=== PATIENT | male | born 1975 | race Caucasian/White ===

== ENCOUNTER 2018-07-14 10:31 | Emergency (ER) | payer SELFPAY ==
[2018-07-14 10:39] VITALS: BP 148/96; PULSE 94; TEMP 97.8; BMI 31.1
[2018-07-14] MEDS ORDERED: KETOROLAC TROMETHAMINE 60 MG/2 ML VIAL IM ONE (11:06)
[2018-07-14] MEDS ORDERED: KETOROLAC TROMETHAMINE 60 MG/2 ML VIAL ONE (11:07)
--- NOTE | 2018-07-14 11:12 | PDOC ---
History of Present Illness - General Chief Complaint: Back Pain Stated Complaint: BACK PAIN Time Seen by Provider: 07/14/18 10:57 History Source: Patient Exam Limitations: No Limitations - History of Present Illness Initial Comments: Patient is a 43-year-old male who states over the past 2 years he said intermittent lower back pain worse over the past 2 weeks. He denies injury or trauma. Denies previous injuries or surgeries to his back. Patient denies loss of bowel/bladder control or urinary retention. Patient denies history of IV drug use or fever. Patient describes his pain as a a throb, worse with movement and rates it 8 out of 10. Patient has been attempting Tylenol and Motrin with minimal success. No analgesics taken prior to arrival. Patient denies any relieving factors. 07/14/18 11:07 Past History - Travel Traveled outside of the country in the last 30 days: No Close contact w/someone who was outside of country & ill: No - Past Medical History Allergies/Adverse Reactions: Allergies Allergy/AdvReac Type Severity Reaction Status Date / Time No Known Allergies Allergy Verified 07/14/18 10:39 Home Medications: Ambulatory Orders Cyclobenzaprine HCl 5 mg PO TID #10 tablet 07/14/18 Ibuprofen [Advil -] mg PO QID 07/14/18 Ibuprofen [Ibu] mg PO ASDIR PRN 07/14/18 COPD: No Other medical history: sciatica - Suicide/Smoking/Psychosocial Hx Smoking History: Never smoked Review of Systems - Review of Systems Able to Perform ROS?: Yes Constitutional: No: Chills, Fever Respiratory: No: Cough Musculoskeletal: Yes: Back Pain All Other Systems: Reviewed and Negative *Physical Exam - Vital Signs Last Vital Signs Temp Pulse Resp BP Pulse Ox 97.8 F 94 H 22 148/96 97 07/14/18 10:36 07/14/18 10:36 07/14/18 10:36 07/14/18 10:36 07/14/18 10:36 - Physical Exam Comments: Constitutional: VS stated, pt appears in no apparent distress; ambulated to examination room, steady gait noted. Skin: Warm and dry. Intact, no lesions or excoriations. Head: Normocephalic; atraumatic Eyes:, conjunctiva pink without injection or discharge. Throat: Oropharynx with pink and moist mucosa. Neck: Supple, non-tender, with full ROM, trachea midline, no anterior/posterior cervical chain lymphadenopathy, Lungs: Bilateral breath sounds clear upon auscultation. No adventitious breath sounds. Heart: Regular rate and rhythm, S1/S2 auscultated. No murmurs, rubs, or gallops. No visible pulsations, heaves, or lifts on precordium. Abdomen: Soft and non-tender. Bowel sounds present in all 4 quadrants, no hepatosplenomegaly, No bruits auscultated. No guarding or rebound. No masses or visible pulsations present. No suprapubic tenderness. No CVAT. No bruits. Musculoskeletal Normal curves of cervical, thoracic, and lumbar spine. No pain upon palpation to the cervical, thoracic or lumbar spine. I can duplicate the pain by pressing on the paraspinous muscles. Full ROM of cervical and lumbar spine. Proximal joints normal; neck, arms, hips, knees, and ankles with full range of active and passive motion. Muscles appear symmetric. Sensation intact medially and laterally. No saddle anesthesia. DTRs+2. No tenderness on palpation of spine. 5/5 strength in upper extremities and lower extremity groups. Neurologic: Awake, alert. Conversation fluent. Normal attention. 07/14/18 11:08 Medical Decision Making - Medical Decision Making Patient has no pain upon palpation to the cervical, thoracic or lumbar spine. I can duplicate the pain by pressing on the paraspinous muscles, I feel this more musculoskeletal nature. Patient also doesn't any red flag signs which warrant an emergent MRI. Patient was given Toradol 60 mg IM. 07/14/18 11:09 *DC/Admit/Observation/Transfer Diagnosis at time of Disposition: Musculoskeletal back pain - Discharge Dispostion Disposition: HOME Condition at time of disposition: Stable Decision to Admit order: No - Prescriptions Prescriptions: Cyclobenzaprine HCl 5 mg PO TID #10 tablet - Referrals Referrals: Rusty Powell MD [Staff Physician] - - Patient Instructions Printed Discharge Instructions: DI for Musculoskeletal Pain Additional Instructions: Take ibuprofen 600 mg every 6 hours. Flexeril as directed, Flexeril is sedating , do not drive, drink alcohol or work while taking this medication. Follow-up with your PCP. - Post Discharge Activity Forms/Work/School Notes: Back to Work
== END 2018-07-14 11:25 | disposition home or self-care (01) ==
LOC: JERFT 10:31
PROC: 3E0233Z Introduction of Anti-inflammatory into Muscle, Percutaneous Approach (ICD-10-PCS; principal; 2018-07-14)
DX: M54.5 Low back pain (principal); M79.1 Myalgia
CPT/HCPCS: 99281-25